=== PATIENT | male | born 1970 | race Caucasian/White ===

== ENCOUNTER 2019-05-07 19:30 | Emergency (ER) | payer BC, OTHER ==
[2019-05-07] MEDS: DIPHTH/TET/ACEL PERTUSS (ADULT) 0.5 ML VIAL IM* (19:57)
[2019-05-07] MEDS: CIPROFLOXACIN 500 MG TAB PO (21:47)
== END 2019-05-07 22:12 | disposition home or self-care (01) ==
LOC: FTE 19:30
DX: S91.342A Puncture wound with foreign body, left foot, initial encounter (principal); W45.8XXA Other foreign body or object entering through skin, initial encounter; Y92.9 Unspecified place or not applicable
CPT/HCPCS: 28190; 73630-LT; 90471; 90715; 99283-25